=== PATIENT | female | born 1990 | race Two or more races ===

== ENCOUNTER 2018-12-31 23:17 | Emergency (ER) ==
[~2018-12-31] VITALS: Ht 175.3 cm; Wt 60.3 kg
--- NOTE | 2018-12-31 23:23 | NUR ---
PT VELASQUEZ. C/O "TOOK 4 PILLS PRESCRIBED BY . ABD PAIN SINCE 2199. +VOMIT" -SOB NOTED. PT VSS. PT IS AAOX4, NOT IN RESPIRATORY DISTRESS, KEPT RESTED AND COMFORTABLE, WILL CONTINUE TO MONITOR.
[2018-12-31] MEDS ORDERED: ONDANSETRON HCL/PF 4 MG/2 ML VIAL IVP ONE (23:30)
[2018-12-31] MEDS ORDERED: IV NS 0.9% 1,000 ML BAG IV ONE (23:30)
[2018-12-31] MEDS ORDERED: MORPHINE SULFATE INJ 2 MG/ML DISP.SYRIN IV ONE (23:30)
--- NOTE | 2018-12-31 23:30 | NUR ---
SEEN AND EXAMINED BY DR. GUEVARA.
[2018-12-31] MEDS ORDERED: ONDANSETRON HCL/PF 4 MG/2 ML VIAL ONE (23:32)
[2018-12-31 23:45] LABS: BASOPHILS % (AUTO) 0.4 % (0.0-2.0); EOSINOPHILS % (AUTO) 0.9 % (0.0-6.0); HEMATOCRIT 40 % (33-45); HEMOGLOBIN 13.9 g/dL (11.5-14.8); LYMPHOCYTES # (AUTO) 3.4 /CMM (0.8-4.8); LYMPHOCYTES % (AUTO) 25.3 % (20.0-44.0); MEAN CORPUSCULAR HGB CONC 35 g/dl (31.0-36.0); MEAN CORPUSCULAR VOLUME 97 fL (82-100); MONOCYTES # (AUTO) 1.1 /CMM (0.1-1.30); MONOCYTES % (AUTO) 8.2 % (2.0-12.0); NEUTROPHILS # (AUTO) 8.9 /CMM (1.8-8.9); NEUTROPHILS % (AUTO) 65.2 % (43.0-81.0); PLATELET COUNT (AUTO) 334 /CMM (150-450); RED BLOOD CELL COUNT(AUTO) 4.11 MIL/uL (4.0-5.2); WHITE BLOOD COUNT (AUTO) 13.6 K/uL (4.3-11.0)
--- NOTE | 2018-12-31 23:46 | NUR ---
IV LINE ESTABLISHED. LABS DRAWNED AND SENT TO LAB.
--- NOTE | 2018-12-31 23:46 | NUR ---
URINAL GIVEN, BUT UNABLE TO PROVIDE URINE SPECIMEN.
[2018-12-31] MEDS ORDERED: MORPHINE SULFATE INJ 4 MG/ML DISP.SYRIN ONE (23:50)
[2018-12-31 23:54] LABS: CALCIUM, SERUM 9.3 mg/dL (8.5-10.1); CREATININE 0.8 mg/dL (0.6-1.3); POTASSIUM 3.2 mmol/L (3.5-5.1)
--- NOTE | 2019-01-01 00:01 | NUR ---
URINE SPECIMEN COLLECTED AND SENT TO LAB.
[2019-01-01 00:07] LABS: APPEARANCE,URINE Cloudy (CLEAR); BILIRUBIN,URINE SMALL (NEGATIVE); BLOOD, URINE Large Ery/uL (NEGATIVE); COLOR,URINE Amber (YELLOW); KETONES,URINE >=160 (NEGATIVE); LEUKOCYTE ESTERASE ,URINE Trace (NEGATIVE); NITRITE, URINE Negative (NEGATIVE); PROTEIN,URINE 100 mg/dl (NEGATIVE); UGLUCOSE Negative (NEGATIVE); UROBILINOGEN,URINE 0.2 EU/dL (0.2)
[2019-01-01 00:21] LABS: BILIRUBIN,DIRECT 0.1 mg/dL (0.0-0.2); BILIRUBIN,TOTAL 0.6 mg/dL (0.2-1.0); TOTAL PROTEIN, SERUM 7.1 g/dL (6.4-8.2)
--- NOTE | 2019-01-01 00:22 | NUR ---
TECH AT BEDSIDE FOR US.
[2019-01-01 01:29] LABS: BACTERIA,URINE Few /HPF (None Seen); CALCIUM OXALATE CRYSTALS,UR Few /HPF (None Seen); RBC,URINE TOO NUMEROUS TO COUN /HPF (0-2); SQUAMOUS EPITHELIAL CELL,UR Rare /HPF (None Seen)
[2019-01-01 01:49] VITALS: BP 118/68
--- NOTE | 2019-01-01 02:09 | NUR ---
IV removed. Catheter intact and site benign. Pressure and 4x4 applied to site. No bleeding noted. ambulatory with a steady gait Patient discharged to home in stable condition. Written and verbal after care instructions given. Patient verbalizes understanding of instruction.
== END 2019-01-01 02:09 | disposition home or self-care (01) ==
LOC: ER 23:18
DX: R10.2 Pelvic and perineal pain (principal); R10.30 Lower abdominal pain, unspecified; T45.1X5A Adverse effect of antineoplastic and immunosuppressive drugs, initial encounter; Y92.89 Other specified places as the place of occurrence of the external cause
CPT/HCPCS: 36415; 76856; 80048; 80076; 81001; 84702; 85025; 85730; 96374; 99284; J2405; J7030; 81000-TC; J2270

== ENCOUNTER 2021-04-07 02:55 | Emergency (ER) | payer SELFPAY ==
[~2021-04-07] VITALS: Ht 175.3 cm; Wt 59.0 kg
--- NOTE | 2021-04-07 03:05 | NUR ---
PT BIBS WITH C/O TOOTHACHE RADIATING TO EAR AND NECK. PT ALERT AND ORIENTED X4. AMBULATORY WITH NON LABORED BREATHING.
[2021-04-07 03:25] VITALS: BP 110/80
--- NOTE | 2021-04-07 03:25 | NUR ---
Patient discharged to home in stable condition. Written and verbal after care instructions given. Patient verbalizes understanding of instruction.
== END 2021-04-07 03:36 | disposition home or self-care (01) ==
LOC: ER 02:55
DX: K08.89 Other specified disorders of teeth and supporting structures (principal); Z60.2 Problems related to living alone

== ENCOUNTER 2022-03-02 11:32 | Emergency (ER) | payer MEDICAID ==
[~2022-03-02] VITALS: Ht 175.3 cm; Wt 58.5 kg
--- NOTE | 2022-03-02 11:33 | NUR ---
BIBRA FROM HOME, SYNCOPAL EPISODE WHILE IN THE SHOWER, + ORAL TRAUMA, LOOSE UPPER LEFT SIDE TOOTH, +CHIN LACERATION 1CM LONG, MINIMAL BLEEDING NOTED. TO ER BED 1, HOOKED TO MONITOR. CHANGED TO HOSP GOWN, WARM BLANKET PROVIDED. PATIENT AAO x 4. AWAITING MD STAFFORD.
--- NOTE | 2022-03-02 11:38 | NUR ---
DR MONTEZ AT BEDSIDE
--- NOTE | 2022-03-02 11:46 | NUR ---
PHARMACY RESIDENT AT BEDSIDE
[2022-03-02] MEDS: IV NS 0.9% 1,000 ML BAG IV ONE (12:04)
[2022-03-02 12:24] LABS: BASOPHILS % (AUTO) 0.2 % (0.0-2.0); EOSINOPHILS % (AUTO) 0.5 % (0.0-6.0); HEMATOCRIT 40 % (33-45); HEMOGLOBIN 13.8 g/dL (11.5-14.8); LYMPHOCYTES # (AUTO) 0.3 K/uL (0.8-4.8); LYMPHOCYTES % (AUTO) 2.8 % (20.0-44.0); MEAN CORPUSCULAR HGB CONC 35 g/dl (31.0-36.0); MEAN CORPUSCULAR VOLUME 96 fL (82-100); MONOCYTES # (AUTO) 0.4 K/uL (0.1-1.30); NEUTROPHILS # (AUTO) 9.3 K/uL (1.8-8.9); NEUTROPHILS % (AUTO) 92.5 % (43.0-81.0); PLATELET COUNT (AUTO) 275 K/uL (150-450); RED BLOOD CELL COUNT(AUTO) 4.17 MIL/uL (4.0-5.2)
[2022-03-02 12:30] LABS: CALCIUM, SERUM 9.5 mg/dL (8.5-10.1); CARBON DIOXIDE 23 mmol/L (21-32); CHLORIDE 100 mmol/L (98-107); CREATININE 0.6 mg/dL (0.6-1.3); GLUCOSE 88 mg/dL (74-106); POTASSIUM 3.5 mmol/L (3.5-5.1); SODIUM SERUM 132 mmol/L (136-145); UREA NITROGEN, BLOOD 7 mg/dL (7-18)
--- NOTE | 2022-03-02 13:42 | NUR ---
HS TROPONIN I W CALC AT [address] MONTEZ. THE ORDER IS READ BACK, VERIFIED. NOTED AND CARRIED OUT.
--- NOTE | 2022-03-02 14:06 | NUR ---
THE PATIENT REFUSED SECOND TROPONIN CHECK DESPITE EXPLAINING RISKS AND BENEFITS. DR MONTZE AWARE.
--- NOTE | 2022-03-02 14:36 | NUR ---
US TECH AT THE BEDSIDE
[2022-03-02] MEDS ORDERED: TDAP [DIPH/PERTUSSIS/TET] 0.5 ML VIAL IM ONE (14:49)
[2022-03-02] MEDS: TDAP [DIPH/PERTUSSIS/TET] 0.5 ML VIAL IM ONE (14:58)
[2022-03-02 15:00] VITALS: BP 113/67
--- NOTE | 2022-03-02 15:00 | NUR ---
IV removed. Catheter intact and site benign. Pressure and 4x4 applied to site. No bleeding noted.Patient does not wish to proceed with medical care recommended by Dr. Roca. Patient given information related to possible complications, up to and including , which could occur as a result of leaving the hospital at this time. Patient verbalizes understanding of risks involved due to leaving against medical advice. Patient has signed AMA form.
== END 2022-03-02 15:01 | disposition left against medical advice (07) ==
LOC: ER 11:35
DX: O26.891 Other specified pregnancy related conditions, first trimester (principal); S01.81XA Laceration without foreign body of other part of head, initial encounter; R55 Syncope and collapse; Z3A.08 8 weeks gestation of pregnancy; Z60.2 Problems related to living alone; W18.2XXA Fall in (into) shower or empty bathtub, initial encounter; Y93.89 Activity, other specified; Y92.89 Other specified places as the place of occurrence of the external cause; Y99.8 Other external cause status
CPT/HCPCS: 99285; 96360; 76805; 12013; 90471; 90715; 85025; 80048; 36415; 84484; 93005; J7030; A6403

== ENCOUNTER 2022-03-20 13:37 | Emergency (ER) | payer MEDICAID ==
[~2022-03-20] VITALS: Ht 172.7 cm; Wt 55.3 kg
[2022-03-20 13:37] VITALS: BP 169/77
--- NOTE | 2022-03-20 14:07 | NUR ---
DR LORD AT BEDSIDE FOR EVAL
--- NOTE | 2022-03-20 14:22 | NUR ---
Patient discharged to home in stable condition. Written and verbal after care instructions given. Patient verbalizes understanding of instruction.
== END 2022-03-20 14:24 | disposition home or self-care (01) ==
LOC: ER 13:39
DX: Z48.02 Encounter for removal of sutures (principal); S01.81XD Laceration without foreign body of other part of head, subsequent encounter; X58.XXXD Exposure to other specified factors, subsequent encounter

== ENCOUNTER 2022-09-24 02:46 | Emergency (ER) | payer MEDICAID ==
[~2022-09-24] VITALS: Ht 167.6 cm; Wt 64.0 kg
--- NOTE | 2022-09-24 03:24 | NUR ---
CALLED TO TRIAGE, PT NOT IN WAITING ROOM
--- NOTE | 2022-09-24 04:00 | NUR ---
PT ELOPED FROM ER
--- NOTE | 2022-09-24 04:10 | NUR ---
PT RETURNED TO ER, CALLED TO TRIAGE
--- NOTE | 2022-09-24 04:12 | NUR ---
BIBS FOR BLOOD WORK AND URINALYSIS, PT STATES "I WANT TO KNOW EVERYTHING" DIAGNOSED WITH KIDNEY STONE 3 WKS AGO
--- NOTE | 2022-09-24 04:29 | NUR ---
URINE COLLECTED AND SENT TO LAB
--- NOTE | 2022-09-24 04:37 | NUR ---
INSPECTOR GOLF BALL AT PT'S BEDSIDE
--- NOTE | 2022-09-24 04:55 | NUR ---
US TECH AT PT'S BEDSIDE
[2022-09-24 05:16] LABS: BASOPHILS % (AUTO) 0.5 % (0.0-2.0); EOSINOPHILS % (AUTO) 5.6 % (0.0-6.0); HEMATOCRIT 37 % (33-45); HEMOGLOBIN 12.9 g/dL (11.5-14.8); LYMPHOCYTES # (AUTO) 2.7 K/uL (0.8-4.8); LYMPHOCYTES % (AUTO) 38.7 % (20.0-44.0); MEAN CORPUSCULAR HGB CONC 35 g/dl (31.0-36.0); MEAN CORPUSCULAR VOLUME 95 fL (82-100); MONOCYTES # (AUTO) 0.5 K/uL (0.1-1.30); MONOCYTES % (AUTO) 7.6 % (2.0-12.0); NEUTROPHILS # (AUTO) 3.3 K/uL (1.8-8.9); NEUTROPHILS % (AUTO) 47.6 % (43.0-81.0); PLATELET COUNT (AUTO) 349 K/uL (150-450); RED BLOOD CELL COUNT(AUTO) 3.92 MIL/uL (4.0-5.2)
[2022-09-24 05:22] LABS: BILIRUBIN,URINE NEGATIVE (NEGATIVE); COLOR,URINE DARK YELLOW (YELLOW); LEUKOCYTE ESTERASE ,URINE 3+ (NEGATIVE); NITRITE, URINE NEGATIVE (NEGATIVE); PROTEIN,URINE 1+ mg/dl (NEGATIVE); UGLUCOSE NEGATIVE (NEGATIVE); UROBILINOGEN,URINE 0.2 EU/dL (0.2)
[2022-09-24 05:28] LABS: BACTERIA,URINE Moderate /HPF (None Seen); RBC,URINE 21-50 /HPF (0-2); SQUAMOUS EPITHELIAL CELL,UR Many /HPF (None Seen); WBC,URINE 21-50 /HPF (0-3)
[2022-09-24 05:28] LABS: CALCIUM, SERUM 9.4 mg/dL (8.5-10.1); CREATININE 0.8 mg/dL (0.6-1.3); POTASSIUM 3.1 mmol/L (3.5-5.1)
[2022-09-24 05:30] LABS: ALBUMIN 3.5 g/dL (3.4-5.0); BILIRUBIN,TOTAL 0.4 mg/dL (0.2-1.0); TOTAL PROTEIN, SERUM 6.8 g/dL (6.4-8.2)
[2022-09-24] MEDS ORDERED: CEPH500C2 PO (05:46)
[2022-09-24 05:56] VITALS: BP 121/59
--- NOTE | 2022-09-24 05:56 | NUR ---
Patient discharged to home in stable condition. RX Written and verbal after care instructions given. Patient verbalizes understanding of instruction.
[2022-09-24] MEDS ORDERED: CEFTRIAXONE 1 G VIAL IM ONE (06:00)
[2022-09-24] MEDS ORDERED: POTASSIUM CHLORIDE 20 MEQ TAB.PRT.SR PO ONE (06:00)
== END 2022-09-24 05:57 | disposition home or self-care (01) ==
LOC: ER 03:02
DX: N20.0 Calculus of kidney (principal); Z60.2 Problems related to living alone
CPT/HCPCS: 36415; 76770-TC; 80053-TC; 81001; 85025-TC; 87086-TC

== ENCOUNTER 2022-12-26 10:29 | Emergency (ER) | payer MEDICAID ==
[~2022-12-26] VITALS: Ht 172.7 cm; Wt 59.0 kg
[~2022-12-26 10:29] MED LIST: CEPH500C2 PO
--- NOTE | 2022-12-26 10:30 | NUR ---
BIBPD FOR MEDICAL CLEARANCE FOR BOOKING. A/O X 3, ABLE TO MAKE NEEDS KNOWN, TOLERATING WELL ON ROOM AIR
[2022-12-26 11:31] VITALS: BP 122/79
--- NOTE | 2022-12-26 11:31 | NUR ---
Patient discharged to home in stable condition. Written and verbal after care instructions given. Patient verbalizes understanding of instruction.
== END 2022-12-26 11:32 ==
LOC: ER 10:33
DX: R06.02 Shortness of breath (principal); F41.9 Anxiety disorder, unspecified; Z60.2 Problems related to living alone